=== PATIENT | female | born 1960 | race Caucasian/White ===

== ENCOUNTER → 2018-03-12 | Outpatient (CLI) | payer OTHER ==
[~2018-03-12] MED LIST: GLUCOPHAGE1000 MG; GLYBURIDE 5 MG T5 M1; IBUPROFEN 800800 MG PO; LISINOPRIL40 MG; SIMVASTATIN40 MG; TRAMADOL 50 MG50 MG
== END ==
LOC: M.RAD 10:11
DX: M17.12 Unilateral primary osteoarthritis, left knee (principal); I70.0 Atherosclerosis of aorta; I10 Essential (primary) hypertension; E11.9 Type 2 diabetes mellitus without complications; E78.00 Pure hypercholesterolemia, unspecified